=== PATIENT | male | born 1990 | race Hispanic/Latino ===

== ENCOUNTER 2017-10-01 09:42 | Emergency (ER) | payer OTHER ==
--- NOTE | 2017-10-01 10:19 | XRay Report ---
LEFT HAND, 3 views: History: Left finger injury. A displaced and comminuted fracture is identified involving the proximal phalanx of the fifth digit. The remaining bony structures are intact. Normal joint spaces. Complex soft tissue laceration at the level of the fracture is also identified. No radiopaque foreign body is appreciated. IMPRESSION: Fracture, proximal phalanx, fifth digit.
[2017-10-01] MEDS ORDERED: NACL 0.9% 1000 ML 1,000 ML IV ONE (10:34)
[2017-10-01] MEDS ORDERED: SUBLIMAZE IV ONE (10:34)
[2017-10-01] MEDS ORDERED: BOOSTRIX IM ONE (10:34)
[2017-10-01 11:20] VITALS: BP 120/75
[2017-10-01] MEDS ORDERED: ceFAZolin 2 GM in NACL 0.9% 100 ML IV ONE (11:30)
--- NOTE | 2017-10-01 11:32 | Emergency Department Report ---
HPI - General Chief Complaint: Extremity Injury, Upper Time Seen by Provider: 10/01/17 10:17 - HPI HPI: The patient is a 27-year-old right hand dominant male who presents for evaluation of traumatic injury to the left fifth digit. He states that approximately 1 hour prior to arrival he sustained crushing trauma to the left fifth digit while at work, and has since experienced constant severe 10/10 in severity burning and throbbing pain to the left fifth digit exacerbated with attempting to movement of the digit. He denies a trauma or injury elsewhere, including trauma to the head, headache, chest pain, neck pain, back pain, pain to the proximal extremities. ED Past Medical Hx - Social History Smoking Status: Current Every Day Smoker Substance Use Type: Alcohol - Medications Home Medications: Home Medications Medication Instructions Recorded Confirmed Last Taken Type No Known Home Medications [No 10/01/17 10/01/17 Unknown History Reported Home Medications] ED Review of Systems ROS: Stated complaint: LEFT HAND LACERATION Other details as noted in HPI Constitutional: denies: fever ENT: denies: throat or neck pain Respiratory: denies: cough, shortness of breath Cardiovascular: denies: chest pain Endocrine: denies unexplained weight loss or gain Gastrointestinal: denies: abdominal pain, nausea Genitourinary: denies: dysuria Musculoskeletal: reprots left pinky pain denies: leg swelling Skin: denies: rash Neurological: denies: headache Hematological/Lymphatic: denies: easy bleeding or easy bruising Psych: denies sadness or hopelessness Physical Exam - Physical Exam Vital Signs: Vital Signs 10/01/17 10/01/17 09:49 11:20 Temperature 98.5 F 98.3 F Pulse Rate 112 H 95 H Respiratory 18 16 Rate Blood Pressure 140/88 Blood Pressure 120/75 [Right] O2 Sat by Pulse 99 100 Oximetry Physical Exam: General: well-nourished, well-developed, no acute distress Head: Normocephalic, atraumatic Eyes: normal sclera ENT: Mucous membranes are pink and moist Neck: trachea midline, neck supple, No neck stiffness, no cervical adenopathy Respiratory: Breath sounds equal bilaterally, no wheezing, rales, or rhonchi Musc: Near through and through laceration of the left fifth digit at the proximal phalanx present, obvious tendon laceration present as well, capillary refill to the distal fingertip diminished but intact, lateral dorsal, and medial distal fingertip sensation intact, ventral fingertip sensation absent, flexor digitorum profundus function absent, flexor digitorum profundus superficialis function preserved, Skin: No rash Neuro: no facial drooping, normal speech Psych: Normal affect ED Course Vital Signs 10/01/17 10/01/17 09:49 11:20 Temperature 98.5 F 98.3 F Pulse Rate 112 H 95 H Respiratory 18 16 Rate Blood Pressure 140/88 Blood Pressure 120/75 [Right] O2 Sat by Pulse 99 100 Oximetry ED Medical Decision Making - Medical Decision Making The patient was seen and examined by myself. The patient is placed on a monitoring manager and continuous pulse ox. On initial evaluation, the patient was found to be in no distress. Evaluation orders were placed. The patient is given IV pain medicine and a tetanus in position. X-ray of the left hand revealed a open, comminuted and displaced fracture of the left fifth proximal phalanx.Patient also given IV Ancef. The patient's wound was irrigated and wrapped in gauze and soaked in normal saline and placed on ice attempt to preserve tissue. As the patient's examination revealed a partially amputated left fifth digit with tendon laceration but intact perfusion and some sensation to the distal tip of the digit, the patient would benefit from hand surgery repair of lacerated tendons and likely nerves. The on-call plastic surgeon Dr. Badlwin was contacted and shared that he does not practice hand surgery any longer. Dr. Cade the on-call orthopedic surgeon was contacted and he also submitted that he does not repair proximal digit amputations and recommended transfer to a hand surgeon. Dr. Murray, the on- call hand surgeon [facility] was contacted. She agreed to accept transfer of the patient. The patient was transferred emergently to [facility] for potential reimplantation of his partially amputated digit. Critical care attestation.: If time is entered above; I have spent that time in minutes in the direct care of this critically ill patient, excluding procedure time. ED Disposition Clinical Impression: Open fracture of proximal phalanx of left hand, Laceration of left little finger with tendon involvement Disposition: [id number] ANOTHER TYPE HLTHCARE Is pt being admited?: No Does the pt Need Aspirin: No Condition: Fair Referrals: PRIMARY CARE, [Primary Care Provider] - 3-5 Days Time of Disposition: 10:45
[2017-10-01] MEDS ORDERED: ANCEF/STERILE WATER 2 GM/20 ML 2 GM/20 ML SYRINGE IV ONE (12:00)
== END 2017-10-01 12:06 | disposition other institution (70) ==
LOC: ED 09:42
DX: S62.617B Displaced fracture of proximal phalanx of left little finger, initial encounter for open fracture (principal); X58.XXXA Exposure to other specified factors, initial encounter; Y93.89 Activity, other specified; Y92.89 Other specified places as the place of occurrence of the external cause; Y99.8 Other external cause status
CPT/HCPCS: 73130; 90471; 90715; 96361; 96365; 96375; 99283; J0690; J3010; J7030